=== PATIENT | male | born 1950 | race Caucasian/White ===

== ENCOUNTER → 2018-03-27 10:16 | Outpatient (CLI) | payer MEDICARE, OTHER, SELFPAY ==
--- NOTE | 2018-03-27 | DI.US.S_ITS ---
PROCEDURE: US ABD AORTA ANEURYSM SCREEN INDICATIONS: AAA SCREENING TECHNIQUE: Real time scanning was performed of the aorta and iliac arteries, with image documentation. COMPARISON: None. FINDINGS: Aorta: Proximal aortic diameter measures 2.9 cm. Mid-aorta measures 2.2 cm. Distal aortic diameter is 1.7 cm. Iliac arteries: Right common iliac artery measures 1.4 cm. Left common iliac artery measures 1.4 cm. IMPRESSION: No evidence of abdominal aortic aneurysm. Dictated by: El Nguyen M.D. on 03/27/2018 at 12:21 Approved by: El Nguyen M.D. on 03/27/2018 at 12:24
== END ==
PROVIDERS: Visit Provider Family Medicine
DX: Z13.6 Encounter for screening for cardiovascular disorders (principal)
CPT/HCPCS: 76706

== ENCOUNTER → 2018-09-17 09:04 | Outpatient (CLI) | payer MEDICARE, OTHER, SELFPAY ==
--- NOTE | 2018-09-17 | DI.US.S_ITS ---
PROCEDURE: US THYROID INDICATIONS: ABNORMAL FINDINGS OF BLOOD CHEMISTRY TECHNIQUE: Real-time scanning was performed of the thyroid gland, with image documentation. COMPARISON: None. FINDINGS: Right: Thyroid lobe measures 3.8 x 2.4 x 1.8 cm, and is diffusely heterogeneous in echotexture. Left: Thyroid lobe measures 5.0 2.4 x 1.8 cm, and is diffusely heterogeneous in echotexture. Isthmus: 3.0 mm thick. Nodule number: 1 Location: Right mid medial Size: 1.6 x 1.1 x 0.8 cm. Composition: Solid Echogenicity: Hypoechoic Shape: wider than tall. Margins: Smooth Echogenic foci: None Total points: 4 ACR TI-RADS category: Moderately suspicious Nodule number: 2 Location: Right mid to inferior lateral Size: 2.1 x 1.5 x 1.2 cm. Composition: Solid Echogenicity: Hypoechoic Shape: wider than tall. Margins: Smooth Echogenic foci: None Total points: 4 ACR TI-RADS category: Moderately suspicious Nodule number: 3 Location: Left mid to inferior medial Size: 3.6 x 1.9 x 1.6 cm. Composition: Solid Echogenicity: Hypoechoic Shape: wider than tall. Margins: Smooth Echogenic foci: None Total points: 4 ACR TI-RADS category: Moderately suspicious IMPRESSION: Bilateral thyroid nodules as above. Recommend sonographically guided needle aspiration involving the right #2 and the left #3 thyroid nodules. TI-RADS definitions and recommendations: TI-RADS 1 (benign): 0 points. FNA not needed. TI-RADS 2 (not suspicious): 2 points. FNA not needed. TI-RADS 3 (mildly suspicious): 3 points. * FNA if 2.5 cm or larger, follow up if 1.5 cm or larger (at 1, 3, and 5 years). TI-RADS 4 (moderately suspicious): 4-6 points. * FNA if 1.5 cm or larger, follow up if 1 cm or larger (at 1, 2, 3, and 5 years). TI-RADS 5 (highly suspicious): 7 points or more. * FNA if 1 cm or larger, follow up if 0.5 cm or larger (every year for 5 years). Dictated by: Mode MOSQUEDA Interpreted: Gordon Anderson MD on 09/17/2018 at 12:48 Approved by: Gordon Anderson M.D. on 09/17/2018 at 16:25
--- NOTE | 2018-09-17 | DI.RAD.S_ITS ---
PROCEDURE: XR CHEST 2V INDICATIONS: SHORTNESS OF BREATH TECHNIQUE: 2 views of the chest were acquired. COMPARISON: [facility], , CHEST 2 VIEW, 03/24/2015, 13:55. FINDINGS: Surgical changes and devices: None. Lungs and pleura: Lungs are clear. No pleural effusions or pneumothorax. Mediastinum: Mediastinal contours are normal. Heart size is normal. Bones and chest wall: No suspicious bony abnormalities. Soft tissues appear unremarkable. IMPRESSION: Normal for age, source of current shortness of breath symptoms is not seen. Dictated by: Dima Davis M.D. on 09/17/2018 at 12:41 Approved by: Dima Davis M.D. on 09/17/2018 at 12:42
--- NOTE | 2018-09-26 08:58 | PM.PFT.1 ---
Pulmonary Function Test Referral & Results Date Patient Seen: 09/17/18 Requesting provider: Marie Hernandez Results: The spirometry demonstrates an FVC of 3.01 L which is 63% of predicted. The FEV1 was measured at 2.53 L which is 71% of predicted. The FEV1/FVC ratio was 80 for which is 113% of predicted. Following the administration of bronchodilator there was 12% improvement in FEV1 and a 40% improvement in FEF 25-75%. Lung volumes show an SVC of 3.37 L which is 70% of predicted. The diffusing capacity was measured at 30.81 which is 91% of predicted. The maximum voluntary ventilation was normal Interpretation: This study demonstrates a moderate obstructive lung disease based our reduction in FEV1. There is evidence of benefit following bronchodilator administration based on 12% improvement in FEV1 and 48% improvement in FEF 25-75% There is also a [id number]-oi-[id number] reduction in lung volumes suggesting restrictive lung disease Diffusing capacity is normal
== END ==
PROVIDERS: Visit Provider Family Medicine
DX: R06.02 Shortness of breath (principal)
CPT/HCPCS: 71046; 76536; 94060; 94726; 94729

== ENCOUNTER 2018-11-18 11:45 | Day surgery (SDC) | payer MEDICARE, OTHER, SELFPAY ==
[2018-11-11 07:49] VITALS: BMI 40.8
[2018-11-18] VITALS (9 sets, daily range): BP systolic 90–148; BP diastolic 45–88; PULSE 62–65; RESP 12–22; TEMP 36.6–37.2; O2SAT 92–98; BMI 40.2
[2018-11-18] MEDS: LACTATED RINGERS 1,000 ML 100 ML IV (12:50)
--- NOTE | 2018-11-18 13:09 | PM.PREOP ---
Pre-operative Note Interval Note History & Physical reviewed/Exam performed by Physician: Yes Changes to H&P: No
[2018-11-18] MEDS: CEFAZOLIN 2 GM/100 ML FROZ.PIGGY IV (13:35)
--- NOTE | 2018-11-18 14:06 | SUR.OPER ---
Supine on padded OR bed, head on pillow, arms secured on padded arm boards at <90 degrees abduction, legs uncrossed, safety belt at thigh, tape over blanket over lower legs.
[2018-11-18] MEDS: BUPIVACAINE 0.25% (PF) VIAL 30 ML INJ (14:13)
--- NOTE | 2018-11-18 15:25 | PM.OP.1 ---
Operative Date/Time/Diagnoses Date of procedure: 11/18/18 Time of procedure: 15:27 Pre-op diagnosis: Umbilical hernia Post-op diagnosis: same Procedure & Clinicians Procedure: Open umbilical hernia repair with mesh Same procedure as scheduled: Yes Indications: 68-year-old male with a symptomatic slowly enlarging umbilical hernia presents for elective repair with mesh after discussion of the risks benefits alternatives to surgical intervention. Surgeon: Trae Montaño Click Yes if Unassisted: Yes Anesthesia Type: General Operative Notes Findings: Umbilical hernia containing fat Specimen(s): none sent Estimated Blood Loss (mL): 5 Procedure in detail: The patient was brought to the operating room placed supine on the table. Bilateral lower extremity compression devices were applied. General anesthesia was induced and he was intubated with an endotracheal tube. He was then prepped and draped in usual sterile fashion. Time-out was performed ensure the correct patient procedure necessary equipment within the operating room. I made a curvilinear infraumbilical incision. The hernia sac was identified and was the adherent to the umbilicus. The sac was carefully did dissected off the umbilicus and then circumferentially down to the level of the fascia. The hernia sac was freed from its fascial attachments. I opened the hernia sac using kurtis and its contents were consistent with omentum. Hernia sac was carefully reduced into the abdomen. I selected an 8 cm circular polypropelen mesh which was inserted to the through the defect. I made sure that the fascial edges were cleared for approximately 2 cm circumferentially. Then using 0 Prolene suture the mesh was fixed to the fascia in interrupted fashion circumferentially. I reapproximated the fascial edges using interrupted 0 Prolene suture. Wound was irrigated and checked for hemostasis. The subcutaneous tissues were reapproximated using 3 0 Vicryl the skin was closed with the running 4 Monocryl followed by the application of Dermabond. The sponge instrument count at the end of the operation was correct. The patient emerged from general anesthesia was extubated and transferred to postoperative care unit in stable condition. Complications: none Post-operative Condition: stable Disposition: same day surgery
[2018-11-18] MEDS: OXYCODONE/ACETAMINOPHEN 5/325 TABLET 1 TAB PO (15:40)
== END 2018-11-18 16:40 | disposition home or self-care (01) ==
PROVIDERS: PCP Family Medicine; Visit Provider Surgery
PROC: (CPT 49585; principal; 2018-11-18 15:15)
DX: K42.9 Umbilical hernia without obstruction or gangrene (principal); E66.01 Morbid (severe) obesity due to excess calories; G47.33 Obstructive sleep apnea (adult) (pediatric); I10 Essential (primary) hypertension
CPT/HCPCS: 49585; C1781; J0330; J0690; J1100; J2405; J2704; J3010

== ENCOUNTER → 2020-05-26 09:32 | Outpatient (CLI) | payer MEDICARE, OTHER, SELFPAY ==
[2018-12-09 11:56] VITALS: BMI 41.8
--- NOTE | 2020-05-26 09:36 | DI.US.S_ITS ---
PROCEDURE: US SCROTUM INDICATIONS: Unspecified exophthalmos,Other specified disorders TECHNIQUE: Real-time scanning was performed of the scrotum and testicles, with image documentation. Color and pulse Doppler interrogation was performed of both testicles. COMPARISON: [facility], CT, ABDOMEN/PELVIS WITH CONTRAST, 09/28/2014, 15:13. [facility], US, TESTICLE IMAGING, 10/17/2010, 9:36. FINDINGS: Right: Testicle is normal in size at 5.1 x 3.1 x 4.5 cm, and homogenous in echotexture. Epididymis is normal in overall size and morphology. No hydrocele or varicoceles. Overlying scrotal skin is normal in thickness. Ectasia of the rete testes is noted. There is a large epididymal head cystic lesion measuring 7.2 x 4.8 x 5.9 cm. This likely represents previously described epididymal head cyst/spermatocele which measured 2.1 x 2.4 x 3.4 cm. No internal solid components visualized. No suspicious vascularity. Left: Testicle is normal in size at 5.4 x 2.3 x 3.9 cm, and homogeneous in echotexture. Epididymis is normal in overall size and morphology. No hydrocele or varicoceles. Overlying scrotal skin is normal in thickness. Ectasia of the rete testes is noted. Multiple left epididymal head cysts are noted measuring between 5 mm and 7 mm in size. Doppler: Color and pulse Doppler demonstrate normal and symmetric arterial flow in both testicles. No inguinal hernias identified. IMPRESSION: 1. Bilateral testicles appear stable in sonographic appearance without evidence for testicular torsion. 2. Interval enlargement of large right epididymal head cyst which likely represents a spermatocele versus epididymal head cyst. It measures up to 7.2 cm in maximal dimension versus 3.4 cm previously. No suspicious internal solid component or vascularity. Consider follow-up imaging in 3-6 months to document stability. 3. Left epididymal head cyst. 4. No sonographic evidence for inguinal hernia. Dictated by: Chris Watson M.D. on 05/26/2020 at 19:54 Approved by: Chris Watson M.D. on 05/26/2020 at 20:01
== END ==
PROVIDERS: PCP Family Medicine; Referring Provider Family Medicine; Visit Provider Family Medicine
DX: N50.89 Other specified disorders of the male genital organs (principal); N50.3 Cyst of epididymis; Z87.438 Personal history of other diseases of male genital organs
CPT/HCPCS: 76870

== ENCOUNTER → 2020-06-22 12:20 | Outpatient (CLI) | payer MEDICARE, OTHER, SELFPAY ==
[2018-12-09 11:56] VITALS: BMI 41.8
[2020-06-23 00:27] LABS: COVID19 - ORCAS (NP or Nasal) Negative (Negative)
== END ==
PROVIDERS: PCP Family Medicine; Visit Provider Family Medicine
DX: Z20.822 Contact with and (suspected) exposure to COVID-19 (principal)
CPT/HCPCS: C9803; U0003

== ENCOUNTER → 2020-08-17 10:46 | Outpatient (CLI) | payer MEDICARE, OTHER, SELFPAY ==
[2018-12-09 11:56] VITALS: BMI 41.8
[2020-08-17 20:18] LABS: Free T3, Triiodothyronine Free 1.31 pg/mL (2.77-5.27)
[2020-08-17 21:00] LABS: Free T4, Direct Thyroxine 0.11 ng/dL (0.78-2.19)
== END ==
PROVIDERS: PCP Family Medicine; Visit Provider Internal Medicine Endocrinology, Diabetes & Metabolism
DX: I10 Essential (primary) hypertension (principal); K42.9 Umbilical hernia without obstruction or gangrene
CPT/HCPCS: 84439; 84443; 84445; 84481

== ENCOUNTER → 2020-10-05 13:41 | Outpatient (CLI) | payer MEDICARE, OTHER, SELFPAY ==
[2018-12-09 11:56] VITALS: BMI 41.8
[2020-10-05 20:30] LABS: Add Manual Diff / Slide Review NO; Basophils Absolute Auto 100 /uL (0-100); Basophils Percent Auto 1.3 % (0-2); Eosinophils Absolute Auto 0 /uL (0-450); Hematocrit 40.7 % (41-53); Hemoglobin 13.9 g/dL (13.5-17.5); Lymphocytes Absolute Auto 900 /uL (1100-4500); Mean Corpuscular HGB Conc 34.2 % (30-36); Mean Corpuscular Hemoglobin 29.9 PG (26-34); Mean Corpuscular Volume 87.4 fL (80-100); Monocytes Absolute Auto 500 /uL (0-900); Neutrophils Absolute Auto 3900 /uL (1500-7000); Neutrophils Percent Auto 72.7 % (50-75); Platelet Count 176 X10^3/uL (150-400); Red Blood Cell Count 4.66 X10^6/uL (4.5-5.9); Red Cell Distribution Width 15.9 % (11.6-14.8); White Blood Cell Count 5.4 X10^3/uL (4.5-11.0)
[2020-10-05 20:38] LABS: HEMOLYSIS < 15 (0-50)
[2020-10-05 20:50] LABS: Alanine Aminotransferase 32 IU/L (<50); Albumin 4.1 g/dL (3.5-5.0); Albumin Globulin Ratio 1.1 (1.0-2.8); Alkaline Phosphatase 107 U/L (38-126); Aspartate Aminotransferase 39 IU/L (17-59); BUN Creatinine Ratio 13.9 (6-22); Bilirubin Total 1.5 mg/dL (0.2-1.3); Blood Urea Nitrogen 11 mg/dL (9-20); Calcium 8.9 mg/dL (8.4-10.2); Carbon Dioxide 29 mmol/L (22-32); Chloride 103 mmol/L (98-107); Estimated Glomerular Filt Rate > 60.0 mL/min (>60); Globulin 3.7 g/dL (1.7-4.1); Glucose 94 mg/dL (80-110); Sodium 138 mmol/L (137-145); Total Protein 7.8 g/dL (6.3-8.2)
[2020-10-05 21:15] LABS: Thyroid Stimulating Hormone 37.1 uIU/mL (0.47-4.68)
[2020-10-05 23:12] LABS: Free T4, Direct Thyroxine 0.22 ng/dL (0.78-2.19)
[2020-10-05 23:25] LABS: Prostate Specific Antigen 0.984 ng/mL (0.10-4.00)
== END ==
PROVIDERS: PCP Family Medicine; Referring Provider Family Medicine; Visit Provider Family Medicine
DX: K42.9 Umbilical hernia without obstruction or gangrene; L03.115 Cellulitis of right lower limb; N40.0 Benign prostatic hyperplasia without lower urinary tract symptoms
CPT/HCPCS: 80053; 84153; 84439; 84443; 85025

== ENCOUNTER → 2020-10-18 13:43 | Outpatient (CLI) | payer MEDICARE, OTHER, SELFPAY ==
[2018-12-09 11:56] VITALS: BMI 41.8
--- NOTE | 2020-10-18 | DI.RAD.S_ITS ---
PROCEDURE: XR CERVICAL SPINE 2V OR 3V INDICATIONS: cervicalgia TECHNIQUE: For view(s) of the cervical spine were acquired. COMPARISON: None. FINDINGS: Bones: No fractures or dislocations to the T1 level. The lateral masses of C1 appear intact on the odontoid view. No suspicious bony lesions. Soft tissues: No prevertebral soft tissue swelling. IMPRESSION: No trauma found. Moderate C5-6 degenerative disc disease without subluxation. Luym-xb-nxrwntzh C4-5 degenerative disc disease also noted. Dictated by: Dima Davis M.D. on 10/18/2020 at 17:06 Approved by: Dima Davis M.D. on 10/18/2020 at 17:06
== END ==
PROVIDERS: PCP Family Medicine; Referring Provider Family Medicine; Visit Provider Family Medicine
DX: M50.321 Other cervical disc degeneration at C4-C5 level (principal)
CPT/HCPCS: 72040

== ENCOUNTER → 2021-01-05 08:58 | Outpatient (CLI) | payer MEDICARE, OTHER, SELFPAY ==
[2018-12-09 11:56] VITALS: BMI 41.8
--- NOTE | 2021-01-05 | DI.US.S_ITS ---
PROCEDURE: US THYROID INDICATIONS: NONTOXIC GOITER TECHNIQUE: Real-time scanning was performed of the thyroid gland, with image documentation. COMPARISON: [facility], US, US THYROID, 10/10/2018, 11:17. [facility], US, US THYROID, 09/17/2018, 11:21. [facility], US, US THYROID, 12/03/2019, 10:13. FINDINGS: Right: Thyroid lobe measures 4.1 x 3.4 x 1.8 cm, and is multinodular and diffusely heterogeneous in echotexture. Left: Thyroid lobe measures 5.2 x 3.4 x 2.7 cm, and is multinodular and diffusely heterogeneous in echotexture. Isthmus: 5.6 mm thick. Nodule number: 1 Location: Right mid Size: Increased at 2.2 x 1.2 x 1.7 cm. Composition: Solid Echogenicity: Hypoechoic Shape: wider than tall. Margins: Smooth Echogenic foci: None Total points: For ACR TI-RADS category: Moderately suspicious IMPRESSION: 1. Diffusely heterogeneous and multinodular thyroid again identified. 2. Increase in size of right mid thyroid measuring up to 2.2 cm. Recommend sonographically directed fine-needle aspiration. ACR TI-RADS definitions and recommendations: TI-RADS 1 (benign): 0 points. FNA not needed. TI-RADS 2 (not suspicious): 2 points. FNA not needed. TI-RADS 3 (mildly suspicious): 3 points. * FNA if 2.5 cm or larger, follow up if 1.5 cm or larger (at 1, 3, and 5 years). TI-RADS 4 (moderately suspicious): 4-6 points. * FNA if 1.5 cm or larger, follow up if 1 cm or larger (at 1, 2, 3, and 5 years). TI-RADS 5 (highly suspicious): 7 points or more. * FNA if 1 cm or larger, follow up if 0.5 cm or larger (every year for 5 years). Dictated by: Mode MOSQUEDA Interpreted: Wes Martínez MD on 01/05/2021 at 12:58 Transcribed by: KONSTANTIN on 01/05/2021 at 13:00 Approved by: Wes Martínez M.D. on 01/05/2021 at 15:31
== END ==
PROVIDERS: PCP Family Medicine; Referring Provider Family Medicine; Visit Provider Family Medicine
DX: E04.2 Nontoxic multinodular goiter (principal)
CPT/HCPCS: 76536

== ENCOUNTER → 2021-02-20 08:23 | Outpatient (CLI) | payer MEDICARE, OTHER, SELFPAY ==
[2018-12-09 11:56] VITALS: BMI 41.8
[2021-02-22 00:26] LABS: COVID19 - ORCAS (NP or Nasal) Negative (Negative)
== END ==
PROVIDERS: PCP Family Medicine; Visit Provider Family Medicine
DX: Z20.822 Contact with and (suspected) exposure to COVID-19 (principal)
CPT/HCPCS: C9803; U0003

== ENCOUNTER → 2022-06-02 10:20 | Outpatient (CLI) | payer MEDICARE, OTHER, SELFPAY ==
[2018-12-09 11:56] VITALS: BMI 41.8
--- NOTE | 2022-06-02 10:22 | DI.RAD.S_ITS ---
PROCEDURE: XR LUMBAR SPINE 2-3V INDICATIONS: LOW BACK PAIN TECHNIQUE: Three views COMPARISON: None. FINDINGS: Bones: 5 bpu-zhl-[id number] vertebrae are present. Grade 2 anterolisthesis of L5 on S1 with probable bilateral pars defects. No vertebral body compression fractures. No suspicious bony lesions. Facet arthrosis. Soft tissues: Overlying bowel gas pattern is normal. No suspicious soft tissue calcifications. IMPRESSION: Anterolisthesis of L5 on S1 with probable pars defects. Dictated by: Yinka Adames M.D. on 06/02/2022 at 10:39 Approved by: Yinka Adames M.D. on 06/02/2022 at 10:48
--- NOTE | 2022-06-02 10:22 | DI.CT.S_ITS ---
PROCEDURE: CT SINUS SCREEN WO CON INDICATIONS: CHRONIC RECURRENT SINUSITIS TECHNIQUE: Noncontrast 3.0 mm axial images acquired from the frontal sinuses to the mid-sella, with coronal and sagittal reformats. For radiation dose reduction, the following was used: automated exposure control, adjustment of mA and/or kV according to patient size. COMPARISON: None. FINDINGS: Image quality: Excellent. Maxillary Sinuses: No bony remodeling or destruction. Mild mucosal thickening along the inferior maxillary wall along the root of the left molars. Ethmoid Air Cells: No bony remodeling or destruction. Sinuses are clear. Sphenoid Sinuses: No bony remodeling or destruction. Sinuses are clear. Frontal Sinuses: No bony remodeling or destruction. Sinuses are clear. Ostiomeatal Complexes: Ostiomeatal complexes are patent. No Pearl cells. Miscellaneous: Visualized intra-orbital contents are normal. No ninoska bullosa or paradoxical turbinate curvature. Leftward nasal septal deviation with a osseous spur contacting the middle turbinates. IMPRESSION: Mucosal thickening of the inferior left maxillary sinus. Leftward deviation the nasal septum. Dictated by: iYnka Adames M.D. on 06/02/2022 at 10:54 Approved by: Yinka Adames M.D. on 06/02/2022 at 11:00
== END ==
PROVIDERS: PCP Family Medicine; Referring Provider Family Medicine; Visit Provider Family Medicine
DX: J32.0 Chronic maxillary sinusitis (principal); J34.2 Deviated nasal septum; M54.59 Other low back pain; M43.17 Spondylolisthesis, lumbosacral region
CPT/HCPCS: 70486; 72100

== ENCOUNTER → 2022-06-26 10:56 | Outpatient (CLI) | payer MEDICARE, OTHER, SELFPAY ==
[2018-12-09 11:56] VITALS: BMI 41.8
--- NOTE | 2022-06-26 | DI.MRI.S_ITS ---
PROCEDURE: MR LUMBAR SPINE WO CON INDICATIONS: Spondylolisthesis, lumbar region TECHNIQUE: Noncontrast sagittal T1 spin echo and T2 fast echo, sagittal STIR, and T2 fast spin echo through the lumbar spine. In cases with scoliosis, additional coronal T2 fast spin echo may be performed. COMPARISON: None. FINDINGS: Image quality: Diagnostic. Alignment and Curvature: There is minimal retrolisthesis at L1-L2. Minimal retrolisthesis is seen at L4-L5. Minimal anterolisthesis is seen at L5-S1. Bone Marrow: Marrow is of normal overall signal. No acute vertebral body compression fractures. Spinal Cord: Conus medullaris terminates at the T11-T12 level. Visualized cord demonstrates normal signal and size. Paraspinous Soft Tissues: No paravertebral masses. T12-L1: Normal appearance. L1-L2: Moderate loss of disc height is seen. Loss of disc signal is seen. Bridging endplate osteophytes are seen. Reactive marrow endplate changes are seen, which are hyperintense on T1-weighted and T2-weighted imaging and most consistent with fatty metaplasia (Modic type II changes). Moderate generalized disc bulge is seen. There is a superimposed central disc protrusion. No significant neural foraminal narrowing can be seen. Mild central canal narrowing is seen. L2-L3: The disc height is well-preserved. Loss of disc signal is seen at this level. Mild generalized disc bulge is seen. Mild facet joint hypertrophy is seen. Mild bilateral neural foraminal narrowing is seen. Mild central canal narrowing is seen. L3-L4: The disc height is well-preserved. Loss of disc signal is seen at this level. Mild to moderate disc bulge is seen at this level. Mild facet joint hypertrophy is seen. Mild bilateral neural foraminal narrowing is seen. Mild central canal narrowing is seen. L4-L5: The disc height is well-preserved. Loss of disc signal is seen at this level. Mild to moderate disc bulge is seen, which is eccentric to the left. There is eeun-du-yswualya right-sided and mild left-sided facet hypertrophy. There is at least moderate bilateral neural foraminal narrowing seen, left worse than right. There is a degree of compression seen upon the exiting nerve roots. Mild central canal narrowing is seen. L5-S1: Moderate loss of disc height is seen. Loss of disc signal is seen. Reactive marrow endplate changes are seen, which are hyperintense on T1-weighted and T2-weighted imaging and most consistent with fatty metaplasia (Modic type II changes). Moderate disc bulge is seen, with a central/left disc protrusion, which continues into the left neural foramen. At least moderate facet hypertrophy is seen. There is moderate to severe bilateral neural foraminal narrowing seen, with an associated a degree of compression seen upon the exiting nerve roots. Moderate central canal narrowing is seen. IMPRESSION: Multiple levels of lumbar spine degenerative change are seen, which are overall worst at the L5-S1 level. Dictated by: Damian Fry M.D. on 06/26/2022 at 13:15 Approved by: Damian Fry M.D. on 06/26/2022 at 13:18
== END ==
PROVIDERS: PCP Family Medicine; Referring Provider Family Medicine; Visit Provider Family Medicine
DX: M47.817 Spondylosis without myelopathy or radiculopathy, lumbosacral region (principal); M47.816 Spondylosis without myelopathy or radiculopathy, lumbar region; M43.16 Spondylolisthesis, lumbar region
CPT/HCPCS: 72148

== ENCOUNTER → 2023-02-15 13:53 | Outpatient (CLI) | payer MEDICARE, OTHER, SELFPAY ==
[2018-12-09 11:56] VITALS: BMI 41.8
--- NOTE | 2023-02-15 | DI.US.S_ITS ---
PROCEDURE: US ABDOMEN LIMITED INDICATIONS: Right upper quadrant pain TECHNIQUE: Real-time scanning was performed of the abdominal and retroperitoneal organs, with image documentation. COMPARISON: None. FINDINGS: Liver: Liver is normal in size. Liver is increased in echogenicity. Gallbladder: Gallstones and possible gallbladder sludge are present. No gall bladder wall thickening. Biliary ducts: Intrahepatic bile ducts are non-dilated. Extrahepatic bile duct caliber measures 5.4 mm. Normal is 6-7 mm or less in diameter, or 10 mm or less post-cholecystectomy. Pancreas: Visualized portions of the pancreas are sonographically normal. Tail is not well seen secondary to overlying bowel gas. IMPRESSION: 1. Gallstones and possibly gallbladder sludge without gallbladder wall thickening. 2. Increased hepatic echogenicity noted possibly related to hepatic steatosis but other sources of hepatocellular disease or hepatic cirrhosis cannot be excluded. Recommend clinical correlation. Dictated by: Salvatore De Los Santos M.D. on 02/15/2023 at 15:49 Approved by: Salvatore De Los Santos M.D. on 02/15/2023 at 15:51
--- NOTE | 2023-02-15 | DI.US.S_ITS ---
PROCEDURE: US SCROTUM INDICATIONS: Scrotal mass TECHNIQUE: Real-time scanning was performed of the scrotum and testicles, with image documentation. Color and pulse Doppler interrogation was performed of both testicles. COMPARISON: [facility], , US SCROTUM, 05/26/2020, 10:42. FINDINGS: Right: Testicle is normal in size at 4.1 x 3.0 x 4.3 cm, and homogenous in echotexture. There is a prominent rete teste. The epididymis is not well visualized. There is a small right hydrocele. There is a 7.2 x 5.6 x 7.5 cm right spermatocele. A 2 mm scrotal ladan is noted. Overlying scrotal skin is normal in thickness. Left: Testicle is normal in size at 4.7 x 3.0 x 4.3 cm, and homogeneous in echotexture. There is a prominent rete teste. The epididymis is not well visualized. There is a small hydrocele. No varicocele. Overlying scrotal skin is normal in thickness. Doppler: Color and pulse Doppler demonstrate normal and symmetric arterial flow in both testicles. IMPRESSION: 1. Very large right spermatocele which compresses the epididymi bilaterally. 2. Small bilateral hydroceles. 3. Prominent bilateral rete testes. Dictated by: Martha Padron M.D. on 02/17/2023 at 18:55 Approved by: Martha Padron M.D. on 02/17/2023 at 18:58
== END ==
PROVIDERS: PCP Family Medicine; Referring Provider Family Medicine; Visit Provider Family Medicine
DX: N50.89 Other specified disorders of the male genital organs (principal); R10.11 Right upper quadrant pain; K80.20 Calculus of gallbladder without cholecystitis without obstruction; N43.41 Spermatocele of epididymis, single; N43.3 Hydrocele, unspecified
CPT/HCPCS: 76705; 76870

== ENCOUNTER → 2023-07-04 10:19 | Outpatient (CLI) | payer MEDICARE, OTHER, SELFPAY ==
[2018-12-09 11:56] VITALS: BMI 41.8
--- NOTE | 2023-07-04 10:21 | DI.CT.S_ITS ---
PROCEDURE: CT ORBIT BI WO/W CON INDICATIONS: EYE DISEASE TECHNIQUE: After the administration of intravenous contrast, 2.5 mm axial images acquired through the orbits, with coronal and sagittal reformats. For radiation dose reduction, the following was used: automated exposure control, adjustment of mA and/or kV according to patient size. COMPARISON: [facility], , CT ORBITS W/WO CONTRAST, 06/22/2022, 9:38. FINDINGS: Image quality: Excellent. Orbits: Globes are symmetrical. The optic nerves are normal in size and enhancement. No retrobulbar masses or fat abnormalities. Lacrimal glands are normal. Optic chiasm is normal. Periorbital soft tissues are normal. Fatty infiltration particularly noted involving the inferior medial and superior oblique muscles resulting in enlargement, similar to the prior exam. There is relative sparing of the muscle tendons. There is minimal crowding at the orbital apex, but small amount of fat cuffing the optic nerve laterally is maintained similar to the prior. Bilateral proptosis noted, slightly improved from the prior exam. Posterior sclera at the inter zygomatic line, previously measuring to 3.8 mm to the inter zygomatic line Intracranial: The pituitary gland is normal, without sellar or suprasellar masses. Visualized cerebral hemispheres, brainstem, and spinal cord appear normal. 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 on 07/04/2023 at 17:44
[2023-07-04 10:53] LABS: Estimated Glomerular Filt Rate > 60 mL/min (>60)
== END ==
LOC: CT 10:20
PROVIDERS: Specialist; PCP Family Medicine; Referring Provider Ophthalmology; Visit Provider Ophthalmology
DX: E05.00 Thyrotoxicosis with diffuse goiter without thyrotoxic crisis or storm (principal); R53.83 Other fatigue
CPT/HCPCS: 36415; 70482; 82565; Q9967

== ENCOUNTER 2024-12-10 15:10 | Emergency (ER) | payer MEDICARE, OTHER, SELFPAY ==
[2018-12-09 11:56] VITALS: BMI 41.8
[2024-12-10 15:30] VITALS: BP 149/85; PULSE 59; RESP 16; TEMP 36.7; O2SAT 95; BMI 39.4
--- NOTE | 2024-12-10 15:39 | DI.US.S_ITS ---
PROCEDURE: US PERIPH VENOUS LOW EXTREM RT INDICATIONS: 1-2 wks calf swelling, redness, and pain r/o DVT TECHNIQUE: Real-time imaging, as well as color and pulse Doppler interrogation, were performed of the lower extremity deep veins from the inguinal ligament to the popliteal fossa, with documentation of the visualized calf veins. COMPARISON: None. FINDINGS: The common femoral, femoral, popliteal, and the visualized calf veins are normally compressible, and free of intraluminal thrombus. Color and pulse Doppler demonstrate normal phasic intraluminal flow. There is normal augmentation response to distal compression maneuver. IMPRESSION: Negative right lower extremity duplex venous ultrasound for DVT. Dictated by: Maurice Velazco M.D. on 12/10/2024 at 16:41 Approved by: Maurice Velazco M.D. on 12/10/2024 at 16:48
--- NOTE | 2024-12-10 16:36 | ED.EXTPRO ---
HPI - Extremity Problem <Tesha Robert PA-C - Last Filed: 12/10/24 19:56> General Chief complaint: Extremity Problem,Nontraumatic Stated complaint: Rt leg swelling pcp ref ( request US ) Time Seen by Provider: 12/10/24 16:26 Source: patient Mode of arrival: Family Vehicle History of Present Illness HPI Narrative: Mr. Hayes is a pleasant 74-year-old male with a past medical history of hypertension, hyperlipidemia, hypothyroidism who presents to the emergency department for right lower extremity redness, swelling, pain times 1-2 weeks. Patient states symptoms precipitated after having a little bit of a stumble and having some pain of his right calf. The leg was initially swollen but then it got much better however 3 days ago the leg started swelling again and became red and tender and his primary care doctor on [facility] sent him to the ER to have an ultrasound for DVT rule out. Denies chest pain, shortness of breath, fevers, known history of VTE. No numbness tingling weakness of the RLE. No open wounds. Related Data Home Medications ?Medication ?Instructions ?Recorded ?Confirmed carvedilol 25 mg tablet (Coreg) 25 mg PO BID ##0 07/10/16 12/03/18 fluticasone 100 mcg-salmeterol 50 1 puff inhalation BID 10/30/18 12/03/18 mcg/dose blistr powdr for inhalation (Advair Diskus) ofloxacin 0.3 % eye drops 1 drp EYE-LEFT DAILY 10/30/18 12/03/18 prednisolone acetate 1 % eye 1 drp EYE-LEFT DAILY 10/30/18 12/03/18 drops,suspension Previous Rx's ?Medication ?Instructions ?Recorded citalopram 20 mg tablet 20 mg PO QDAY #90 tabs 03/26/16 doxazosin 8 mg tablet 8 mg PO QDAY #90 tabs 03/26/16 furosemide 40 mg tablet 40 mg PO QDAY #90 tabs 03/26/16 levothyroxine 50 mcg tablet 50 mcg PO QAM #90 tabs 03/26/16 potassium chloride 20 mEq 20 meq PO BID #180 tabs 05/24/16 tablet,extended release(part/cryst) amlodipine 5 mg tablet (Norvasc) 5 mg PO QDAY #90 tabs 10/26/16 oxycodone 5 mg capsule 5 mg PO Q4-6H PRN pain #20 caps 11/18/18 cephalexin 500 mg capsule 500 mg PO QID 7 days #28 caps 12/10/24 Allergies Allergy/AdvReac Type Severity Reaction Status Date / Time dog dander (DOG DANDER) AdvReac Unknown shaky Unverified 12/10/24 15:35 morphine AdvReac Unknown Verified 12/10/24 15:35 Review of Systems <Tesha Robert PA-C - Last Filed: 12/10/24 19:56> Review of Systems ROS Unobtainable: All systems reviewed & are unremarkable except as noted in HPI and below Patient History <Tesha Robert PA-C - Last Filed: 12/10/24 19:56> Medical History First degree AV block Obesity Tinea corporis Fatigue Mild concentric left ventricular hypertrophy (LVH) Chest pressure JOSSELINE on CPAP 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 Overweight patient, in no acute distress. HEAD: Atraumatic. Normocephalic. EYES: No scleral icterus. No injection or drainage. NECK: Trachea midline. Cervical ROM intact. CARDIOVASCULAR: Regular rate and rhythm. RESPIRATORY: ?Nonlabored respirations. ?Speaking in clear, full sentences. ?Clear to auscultation. Breath sounds equal bilaterally. No wheezes, rales, or rhonchi. ? EXTREMITIES: Mild erythema and increased warmth of the RLE from ankle to distal knee. Nonpitting edema of right lower extremity. No streaking erythema or erythema extending onto the knee or more proximal. Two small scabs on lateral leg but no wounds. DP and PT pulse detectable with Doppler, difficult to palpate due to edema. Left lower extremity with palpable DP and PT pulse, no edema. NEURO: AOx3. ?Clear speech. ?Moves all 4 extremities appropriately. SKIN: Erythema increased warmth right lower extremity. Remainder of skin is warm and dry. Initial Vital Signs Initial Vital Signs: Vital Signs Temperature 98.0 F 12/10/24 15:30 Pulse Rate 59 L 12/10/24 15:30 Respiratory Rate 16 12/10/24 15:30 Blood Pressure 149/85 H 12/10/24 15:30 Pulse Oximetry 95 12/10/24 15:30 Oxygen Delivery Method Room Air 12/10/24 15:30 <Yinka Cruz MD - Last Filed: 12/11/24 12:04> Initial Vital Signs Initial Vital Signs: Vital Signs Temperature 98.0 F 12/10/24 15:30 Pulse Rate 59 L 12/10/24 15:30 Respiratory Rate 16 12/10/24 15:30 Blood Pressure 149/85 H 12/10/24 15:30 Pulse Oximetry 95 12/10/24 15:30 Oxygen Delivery Method Room Air 12/10/24 15:30 Course <Tesha Robert PA-C - Last Filed: 12/10/24 19:56> Orders Ordered: Discontinued Medications Cephalexin HCl (Cephalexin 250 Mg Capsule) 500 mg PO NOW ONE Stop: 12/10/24 17:03 Last Admin: 12/10/24 17:26 Dose: 500 mg Documented By: NANCY Vital Signs Vital signs: Vital Signs - 8 hr 12/10/24 15:30 12/10/24 17:31 Temperature 98.0 F Pulse Rate 59 L 58 L Respiratory Rate 16 16 Blood Pressure 149/85 H 141/84 H Pulse Oximetry 95 96 Oxygen Delivery Method Room Air Room Air <Yinka Cruz MD - Last Filed: 12/11/24 12:04> Orders Ordered: Discontinued Medications Cephalexin HCl (Cephalexin 250 Mg Capsule) 500 mg PO NOW ONE Stop: 12/10/24 17:03 Last Admin: 12/10/24 17:26 Dose: 500 mg Documented By: NANCY Vital Signs Vital signs: Vital Signs - 8 hr 12/10/24 15:30 12/10/24 17:31 Temperature 98.0 F Pulse Rate 59 L 58 L Respiratory Rate 16 16 Blood Pressure 149/85 H 141/84 H Pulse Oximetry 95 96 Oxygen Delivery Method Room Air Room Air MDM - Extremity (Nontraumatic) <Tesha Robert PA-C - Last Filed: 12/10/24 19:56> Medical Records Attestation: I reviewed the patient's medical records. Imaging Data RLE Venous US: Radiologist's Impression: PROCEDURE: US PERIPH VENOUS LOW EXTREM RT INDICATIONS: 1-2 wks calf swelling, redness, and pain r/o DVT TECHNIQUE: Real-time imaging, as well as color and pulse Doppler interrogation, were performed of the lower extremity deep veins from the inguinal ligament to the popliteal fossa, with documentation of the visualized calf veins. COMPARISON: None. FINDINGS: The common femoral, femoral, popliteal, and the visualized calf veins are normally compressible, and free of intraluminal thrombus. Color and pulse Doppler demonstrate normal phasic intraluminal flow. There is normal augmentation response to distal compression maneuver. IMPRESSION: Negative right lower extremity duplex venous ultrasound for DVT. Dictated by: Maurice Velazco M.D. on 12/10/2024 at 16:41 Approved by: Maurice Velazco M.D. on 12/10/2024 at 16:48 [facility] Narrative Medical decision making narrative: 74-year-old male with a past medical history of hypertension, hyperlipidemia, hypothyroidism who presents to the emergency department for right lower extremity redness, swelling, pain times 1-2 weeks. Differential diagnosis includes but isn't limited to cellulitis, DVT, SVT, etc. On exam patient is in no acute distress, nontoxic appearing, vital signs appropriate. He is mild edema, erythema and increased warmth of the right lower extremity clinically consistent with cellulitis. Right lower extremity venous ultrasound ordered. His lower extremity is neurovascularly intact, pulses present, brisk cap refill present, sensation intact to light touch. He is not febrile, tachycardic, sirs screen negative. Right lower extremity venous ultrasound is negative for DVT. We will treat patient with cephalexin q.i.d. x7 days for cellulitis. Recommended supportive care, rest, elevation, compression. Recommended repeat right lower extremity venous ultrasound in 1 week if swelling is not improved. Discussed strict ER return precautions and follow up with the PCP. Patient verbalized understanding of all information agreeable with the plan. He is ambulatory stable for discharge home. Discharge Plan Departure Patient Disposition: Home Clinical Impression: Cellulitis Qualifiers: Site of cellulitis: extremity Site of cellulitis of extremity: lower extremity Laterality: right Qualified Code(s): L03.115 - Cellulitis of right lower limb Instructions: DI for Cellulitis -- Adult Activity Restrictions/Additional Instructions: Dear Freddy, Thank you for coming to the emergency department. Today your ultrasound revealed no blood clot in the lower leg. You do have cellulitis which is a skin and soft tissue infection. Complete the full 7 day course of antibiotics. It also will be helpful to elevate the leg, apply ice delay, and wear compression socks. Please return to the emergency department in 1 week and have a repeat ultrasound of the leg swelling is not improving. Also return immediately if you develop increased swelling, pain, fevers, chest pain, shortness of breath or any other concerns. Please follow up with your primary care doctor within the next 2-3 days for ER follow-up. (If you do not have a PCP you can call [phone]. ?to schedule an appointment with an Primary Care Provider) IF YOU DEVELOP ANY NEW OR WORSENING SYMPTOMS, RETURN TO THE ER! Please read the attached instructions, they highlight more specific treatments and interventions for you at home. Thank you for letting me participate in your care, Tesha Robert PA-C Prescriptions: New cephalexin 500 mg capsule 500 mg PO QID 7 Days Qty: 28 0RF No Action citalopram 20 MG tablet 20 mg PO QDAY Qty: 90 3RF doxazosin 8 MG tablet 8 mg PO QDAY Qty: 90 3RF furosemide 40 MG tablet 40 mg PO QDAY Qty: 90 3RF levothyroxine 50 MCG tablet 50 mcg PO QAM Qty: 90 3RF potassium chloride 20 MEQ tablet,ER particles/crystals 20 meq PO BID Qty: 180 3RF carvedilol [Coreg] 25 MG tablet 25 mg PO BID Qty: 0 amlodipine [Norvasc] 5 MG tablet 5 mg PO QDAY Qty: 90 0RF ofloxacin 0.3 % drops 1 drp EYE-LEFT DAILY prednisolone acetate 1 % drops,suspension 1 drp EYE-LEFT DAILY fluticasone propion-salmeterol [Advair Diskus] 100-50 mcg/dose blister with device 1 puff INHALATION BID oxycodone 5 mg capsule 5 mg PO Q4-6H PRN (Reason: pain) Qty: 20 0RF Referrals: Marie Hernandez MD [Primary Care Provider, Family Practice] Stand Alone Forms: Patient Portal/API ED Sign-out <Yinka Cruz MD - Last Filed: 12/11/24 12:04> Cosign ED Attending Cosignature Attestation: I was immediately available in the department for consultation. ?This documentation has been reviewed and I agree with assessment and plan. Supervised by Yinka Cruz MD
[2024-12-10 17:31] VITALS: BP 141/84; PULSE 58; RESP 16; O2SAT 96
== END 2024-12-10 17:30 | disposition home or self-care (01) ==
PROVIDERS: Emergency Provider Physician Assistant; PCP Family Medicine
DX: L03.115 Cellulitis of right lower limb (principal)
CPT/HCPCS: 93971; 99283